=== PATIENT | female | born 1965 | race Caucasian/White ===

== ENCOUNTER 2020-03-28 22:45 | Inpatient (IN) ==
[2020-03-28] MEDS ORDERED: Ipratropium/Albuterol Neb 3 ML IH ONE (23:25)
[2020-03-29 00:05] LABS: Basophils # 0.1 K/mcL (0.0-0.2); Basophils % 0.8 %; Eosinophils # 0.2 K/mcL (0.0-0.6); Eosinophils % 2.3 %; Hematocrit 40.3 % (35.3-44.9); Hemoglobin 13.1 g/dL (11.5-15.4); Immature Granulocytes % 0.3 % (0-4); Lymphocytes % 37.4 %; Mean Corpuscular HGB Conc 32.5 g/dL (31.6-35.5); Mean Corpuscular Hemoglobin 30.3 pg (28.0-33.3); Mean Corpuscular Volume 93.1 fL (83.0-100.0); Mean Platelet Volume 10.3 fL (9.4-12.4); Monocytes # 0.4 K/mcL (0.0-1.3); Monocytes % 4.5 %; Neutrophils # 4.4 K/mcL (1.6-8.9); Platelet Count 241 K/mcL (140-400); Red Blood Count 4.33 M/mcL (3.82-4.97); Red Cell Distribution Width 13.6 % (11.5-14.5); Segmented Neutrophils % 54.7 %
[2020-03-29 00:09] LABS: Bilirubin,Urine Negative (Negative); Blood,Urine Small (Negative); Clarity,Urine Clear (Clear); Color,Urine Yellow (Yellow); Glucose,Urine (UA) 500 mg/dL (Normal); Ketones,Urine Negative (Negative); Leukocyte Esterase,Urine Trace (Negative); Nitrite,Urine Positive (Negative); Protein,Urine 100 mg/dL (Neg-Trace); Specific Gravity,Urine 1.025 (1.010-1.025); Urobilinogen,Urine Normal (Normal)
[2020-03-29] MEDS ORDERED: levoFLOXacin 750 MG/150 ML 750 MG/150 ML BAG IVPB ONE (00:09)
[2020-03-29] MEDS ORDERED: Vancomycin 1,000 MG in D5% in Water 250 ML IVPB ONE (00:10)
[2020-03-29 00:11] LABS: Bacteria,Urine Many per hpf (None-Few); RBC,Urine 0-3 per hpf (0-3); Squamous Epithelial Cell,Urine Few per hpf (None-Few)
[2020-03-29 00:21] LABS: VBG HCO3 29 mEq/L (21-27); VBG PCO2 50 mmHg (41-51); VBG PH 7.37 pH Units (7.32-7.42); VBG PO2 19 mmHg (25-50)
[2020-03-29 00:26] LABS: Albumin 4.1 g/dL (3.5-5.7); Bilirubin,Direct 0.1 mg/dL (0.0-0.2); Bilirubin,Indirect 0.4 mg/dL (0.0-1.0); Bilirubin,Total 0.5 mg/dL (0.3-1.0); Calcium 9.7 mg/dL (8.6-10.3); Globulin 4.3 g/dL (2.4-3.5); Total Protein 8.4 g/dL (6.4-8.9)
[2020-03-29] MEDS ORDERED: Dextrose Gel 15 GM/37.5 ML TUBE PO PRN ×2 (03:01)
[2020-03-29] MEDS ORDERED: Ondansetron ODT 4 MG TAB.RAPDIS SL PRN (03:01)
[2020-03-29] MEDS ORDERED: Naloxone 0.4 MG/ML INJ IVP PRN (03:01)
[2020-03-29] MEDS ORDERED: *HR* Dextrose 50 % in Water (Vial) 50 ML VIAL IVP PRN (03:01)
[2020-03-29] MEDS ORDERED: Ondansetron ODT 4 MG TAB.RAPDIS PO PRN (03:01)
[2020-03-29] MEDS ORDERED: *HR* Labetalol 20 MG/4 ML SYRINGE IVP PRN (03:01)
[2020-03-29] MEDS ORDERED: D5% in Water 1,000 ML IVC PRN (03:01)
[2020-03-29] MEDS ORDERED: Ipratropium/Albuterol Neb 3 ML IH PRN (04:00)
[2020-03-29 04:06] LABS: Basophils # 0.1 K/mcL (0.0-0.2); Basophils % 0.8 %; Eosinophils # 0.2 K/mcL (0.0-0.6); Eosinophils % 2.1 %; Hematocrit 37.6 % (35.3-44.9); Hemoglobin 12.4 g/dL (11.5-15.4); Immature Granulocytes % 0.5 % (0-4); Lymphocytes # 2.7 K/mcL (0.6-4.6); Lymphocytes % 34.2 %; Mean Corpuscular Hemoglobin 30.7 pg (28.0-33.3); Mean Corpuscular Volume 93.1 fL (83.0-100.0); Mean Platelet Volume 9.9 fL (9.4-12.4); Monocytes # 0.4 K/mcL (0.0-1.3); Monocytes % 4.9 %; Neutrophils # 4.6 K/mcL (1.6-8.9); Platelet Count 236 K/mcL (140-400); Red Blood Count 4.04 M/mcL (3.82-4.97); Red Cell Distribution Width 13.5 % (11.5-14.5); Segmented Neutrophils % 57.5 %
[2020-03-29 05:06] LABS: Albumin 3.9 g/dL (3.5-5.7); Albumin/Globulin Ratio 0.9 (1.1-2.2); Bilirubin,Total 0.5 mg/dL (0.3-1.0); Calcium 9.6 mg/dL (8.6-10.3); Globulin 4.2 g/dL (2.4-3.5); Total Protein 8.1 g/dL (6.4-8.9)
[2020-03-29] MEDS ORDERED: Insulin LISPRO 300 UNITS/3 ML VIAL SQ SCH (06:00)
[2020-03-29] MEDS: 0.9 % Sodium Chloride 500 ML IVC SCH ×2 (06:33→12:39)
[2020-03-29] MEDS ORDERED: *HR* Enoxaparin 40 MG/0.4 ML SYRINGE SQ SCH (07:00)
[2020-03-29] MEDS ORDERED: *HR* Metformin 500 MG TABLET PO SCH (08:00)
[2020-03-29] MEDS: Ipratropium/Albuterol Neb 3 ML IH SCH ×3 (08:30→21:24)
[2020-03-29] MEDS ORDERED: VENLAFAXINE HCL 100 MG PO SCH (09:00)
[2020-03-29] MEDS ORDERED: lisinopriL 10 MG TABLET PO SCH (09:00)
[2020-03-29] MEDS: Insulin LISPRO 300 UNITS/3 ML VIAL SQ SCH ×4 (09:02→21:59)
[2020-03-29] MEDS: Aspirin Enteric Coated 81 MG Tablet PO SCH (09:05)
[2020-03-29] MEDS: Topiramate 25 MG TABLET PO SCH ×2 (09:06→21:58)
[2020-03-29] MEDS: levETIRAcetam 250 MG TABLET PO SCH ×2 (09:06→21:57)
[2020-03-29] MEDS ORDERED: Gabapentin 300 MG CAPSULE PO PRN (10:15)
[2020-03-29 12:16] LABS: Estimated Average Glucose 361 mg/dl
[2020-03-29] MEDS: amLODIPine 5 MG TABLET PO SCH (12:29)
[2020-03-29] MEDS ORDERED: Levothyroxine 25 MCG TABLET PO SCH (14:00)
[2020-03-29] MEDS: *HR* Heparin 5,000 UNIT/ML VIAL SQ SCH ×2 (14:22→21:57)
[2020-03-29 14:44] LABS: Calcium 9.3 mg/dL (8.6-10.3); Potassium 3.9 mEq/L (3.5-5.1)
[2020-03-29 15:41] LABS: Thyroid Stimulating Hormone 155.939 mcIU/mL (0.340-5.600)
[2020-03-29] MEDS: 0.9 % Sodium Chloride 1,000 ML IVC SCH ×2 (16:46→23:54)
[2020-03-29] MEDS ORDERED: Insulin DETEMIR 100 UNIT/ML per UNIT SQ ONE (21:00)
[2020-03-29] MEDS ORDERED: QUEtiapine Fumarate 25 MG TABLET PO SCH (21:00)
[2020-03-29] MEDS ORDERED: Insulin DETEMIR 100 UNIT/ML X5UNITS SQ SCH (21:00)
[2020-03-29] MEDS ORDERED: Insulin NPH 100 UNIT/ML (x5UNIT) SQ SCH (21:00)
[2020-03-29] MEDS: Melatonin 3 MG TABLET PO SCH (21:58)
[2020-03-29] MEDS: Nystatin POWDER 30 GM BOTTLE TP SCH (21:58)
[2020-03-29] MEDS ORDERED: hydrOXYzine pamoate 25 MG CAPSULE PO PRN (22:00)
[2020-03-30] MEDS: Ipratropium/Albuterol Neb 3 ML IH SCH ×4 (03:49→21:40)
[2020-03-30] MEDS: *HR* Heparin 5,000 UNIT/ML VIAL SQ SCH ×3 (04:52→21:37)
[2020-03-30] MEDS: Gabapentin 100 MG CAPSULE PO PRN (04:52)
[2020-03-30 05:20] LABS: Basophils # 0.1 K/mcL (0.0-0.2); Basophils % 0.9 %; Eosinophils # 0.2 K/mcL (0.0-0.6); Eosinophils % 2.1 %; Hematocrit 36.2 % (35.3-44.9); Hemoglobin 11.6 g/dL (11.5-15.4); Immature Granulocytes % 0.3 % (0-4); Lymphocytes # 3.2 K/mcL (0.6-4.6); Mean Corpuscular Hemoglobin 30.6 pg (28.0-33.3); Mean Corpuscular Volume 95.5 fL (83.0-100.0); Mean Platelet Volume 10.1 fL (9.4-12.4); Monocytes # 0.4 K/mcL (0.0-1.3); Monocytes % 5.3 %; Neutrophils # 3.8 K/mcL (1.6-8.9); Platelet Count 195 K/mcL (140-400); Red Blood Count 3.79 M/mcL (3.82-4.97); Red Cell Distribution Width 13.9 % (11.5-14.5); Segmented Neutrophils % 49.4 %; White Blood Count 7.7 K/mcL (4.3-11.1)
[2020-03-30 05:34] LABS: Albumin 3.4 g/dL (3.5-5.7); Albumin/Globulin Ratio 0.9 (1.1-2.2); Bilirubin,Total 0.4 mg/dL (0.3-1.0); Calcium 9.1 mg/dL (8.6-10.3); Globulin 3.6 g/dL (2.4-3.5); Potassium 4.2 mEq/L (3.5-5.1)
[2020-03-30] MEDS: levETIRAcetam 250 MG TABLET PO SCH ×2 (09:23→21:37)
[2020-03-30] MEDS: PARoxetine 20 MG TABLET PO SCH (09:23)
[2020-03-30] MEDS: Topiramate 25 MG TABLET PO SCH ×2 (09:23→21:37)
[2020-03-30] MEDS: Aspirin Enteric Coated 81 MG Tablet PO SCH (09:23)
[2020-03-30] MEDS: amLODIPine 5 MG TABLET PO SCH (09:23)
[2020-03-30] MEDS: Nystatin POWDER 30 GM BOTTLE TP SCH ×2 (09:26→21:39)
[2020-03-30] MEDS: Insulin LISPRO 300 UNITS/3 ML VIAL SQ SCH ×4 (09:26→21:40)
[2020-03-30] MEDS: 0.9 % Sodium Chloride 1,000 ML IVC SCH (09:31)
[2020-03-30] MEDS: levoFLOXacin 750 MG/150 ML 750 MG/150 ML BAG IVPB SCH (14:23)
[2020-03-30] MEDS ORDERED: levoFLOXacin 500 MG/100 ML 500 MG/100 ML BAG IVPB SCH (18:00)
[2020-03-30] MEDS ORDERED: Insulin DETEMIR 100 UNIT/ML X5UNITS SQ SCH (21:00)
[2020-03-30] MEDS: Melatonin 3 MG TABLET PO SCH (21:37)
[2020-03-30] MEDS: Insulin DETEMIR 100 UNIT/ML X5UNITS SQ SCH (21:38)
[2020-03-31] MEDS: Ipratropium/Albuterol Neb 3 ML IH SCH ×4 (04:04→21:52)
[2020-03-31 05:34] LABS: Calcium 8.9 mg/dL (8.6-10.3)
[2020-03-31] MEDS: *HR* Heparin 5,000 UNIT/ML VIAL SQ SCH ×3 (05:43→21:17)
[2020-03-31] MEDS: Insulin LISPRO 300 UNITS/3 ML VIAL SQ SCH ×4 (07:51→21:08)
[2020-03-31] MEDS: Aspirin Enteric Coated 81 MG Tablet PO SCH (09:05)
[2020-03-31] MEDS: Nystatin POWDER 30 GM BOTTLE TP SCH ×2 (09:05→21:22)
[2020-03-31] MEDS: PARoxetine 20 MG TABLET PO SCH (09:05)
[2020-03-31] MEDS: levETIRAcetam 250 MG TABLET PO SCH ×2 (09:05→21:17)
[2020-03-31] MEDS: Topiramate 25 MG TABLET PO SCH ×2 (09:06→21:16)
[2020-03-31] MEDS: amLODIPine 5 MG TABLET PO SCH (09:35)
[2020-03-31] MEDS: levoFLOXacin 750 MG/150 ML 750 MG/150 ML BAG IVPB SCH (13:16)
[2020-03-31] MEDS: levoFLOXacin 750 MG TABLET PO SCH (16:25)
[2020-03-31] MEDS: Gabapentin 100 MG CAPSULE PO PRN (19:51)
[2020-03-31] MEDS: Insulin DETEMIR 100 UNIT/ML X5UNITS SQ SCH (21:17)
[2020-03-31] MEDS: Melatonin 3 MG TABLET PO SCH (21:17)
[2020-04-01] MEDS: Ipratropium/Albuterol Neb 3 ML IH SCH ×4 (03:57→22:34)
[2020-04-01 05:38] LABS: Calcium 9.1 mg/dL (8.6-10.3)
[2020-04-01] MEDS: *HR* Heparin 5,000 UNIT/ML VIAL SQ SCH ×3 (06:17→21:44)
[2020-04-01] MEDS: Insulin LISPRO 300 UNITS/3 ML VIAL SQ SCH ×4 (07:31→21:49)
[2020-04-01] MEDS: Topiramate 25 MG TABLET PO SCH ×2 (08:31→21:40)
[2020-04-01] MEDS: Aspirin Enteric Coated 81 MG Tablet PO SCH (08:31)
[2020-04-01] MEDS: PARoxetine 20 MG TABLET PO SCH (08:31)
[2020-04-01] MEDS: levETIRAcetam 250 MG TABLET PO SCH ×2 (08:31→21:41)
[2020-04-01] MEDS: Nystatin POWDER 30 GM BOTTLE TP SCH ×2 (08:31→21:48)
[2020-04-01] MEDS: amLODIPine 5 MG TABLET PO SCH (08:32)
[2020-04-01] MEDS: levoFLOXacin 750 MG TABLET PO SCH (16:59)
[2020-04-01 19:14] LABS: Sodium, Urine 58.9 mEq/L
[2020-04-01] MEDS: Gabapentin 100 MG CAPSULE PO PRN (21:40)
[2020-04-01] MEDS: Melatonin 3 MG TABLET PO SCH (21:42)
[2020-04-01] MEDS: Insulin DETEMIR 100 UNIT/ML X5UNITS SQ SCH (21:51)
[2020-04-02] MEDS: Ipratropium/Albuterol Neb 3 ML IH SCH ×4 (04:01→21:41)
[2020-04-02] MEDS: *HR* Heparin 5,000 UNIT/ML VIAL SQ SCH ×3 (06:20→21:58)
[2020-04-02 06:28] LABS: Calcium 9.1 mg/dL (8.6-10.3); Potassium 4.4 mEq/L (3.5-5.1)
[2020-04-02] MEDS: Insulin LISPRO 300 UNITS/3 ML VIAL SQ SCH ×4 (08:39→21:52)
[2020-04-02] MEDS: PARoxetine 20 MG TABLET PO SCH (08:42)
[2020-04-02] MEDS: Topiramate 25 MG TABLET PO SCH ×2 (08:42→21:47)
[2020-04-02] MEDS: levETIRAcetam 250 MG TABLET PO SCH ×2 (08:42→21:49)
[2020-04-02] MEDS: Aspirin Enteric Coated 81 MG Tablet PO SCH (08:43)
[2020-04-02] MEDS: amLODIPine 5 MG TABLET PO SCH (08:43)
[2020-04-02] MEDS: Nystatin POWDER 30 GM BOTTLE TP SCH ×2 (08:46→21:53)
[2020-04-02] MEDS ORDERED: 0.9 % Sodium Chloride 1,000 ML IVC SCH (13:00)
[2020-04-02] MEDS ORDERED: *HR* OxyCODONE Immed Rel 5 MG TABLET PO PRN (15:20)
[2020-04-02] MEDS: SUMAtriptan succinate 25 MG TABLET PO PRN ×2 (17:14→21:49)
[2020-04-02] MEDS: levoFLOXacin 750 MG TABLET PO SCH (17:14)
[2020-04-02 17:30] LABS: Bilirubin,Urine Negative (Negative); Blood,Urine Trace-lysed (Negative); Clarity,Urine Clear (Clear); Color,Urine Yellow (Yellow); Glucose,Urine (UA) Normal (Normal); Ketones,Urine Negative (Negative); Leukocyte Esterase,Urine Negative (Negative); Nitrite,Urine Negative (Negative); Protein,Urine 30 mg/dL (Neg-Trace); Urobilinogen,Urine Normal (Normal)
[2020-04-02 17:44] LABS: RBC,Urine 0-3 per hpf (0-3); Squamous Epithelial Cell,Urine Moderate per hpf (None-Few)
[2020-04-02] MEDS: Gabapentin 100 MG CAPSULE PO PRN (21:47)
[2020-04-02] MEDS: Melatonin 3 MG TABLET PO SCH (21:49)
[2020-04-02] MEDS: Insulin DETEMIR 100 UNIT/ML X5UNITS SQ SCH (21:53)
[2020-04-03] MEDS: Ipratropium/Albuterol Neb 3 ML IH SCH ×4 (01:59→21:48)
[2020-04-03] MEDS: SUMAtriptan succinate 25 MG TABLET PO PRN ×2 (05:18→20:51)
[2020-04-03] MEDS: *HR* Heparin 5,000 UNIT/ML VIAL SQ SCH ×3 (05:18→21:04)
[2020-04-03 07:37] LABS: Calcium 9.2 mg/dL (8.6-10.3); Potassium 4.1 mEq/L (3.5-5.1)
[2020-04-03 07:38] LABS: Albumin 3.9 g/dL (3.5-5.7); Magnesium 1.9 mg/dL (1.6-2.6); Phosphorous 5.1 mg/dL (2.7-4.5); Uric Acid 8.8 mg/dL (2.3-7.6)
[2020-04-03] MEDS: Insulin LISPRO 300 UNITS/3 ML VIAL SQ SCH ×4 (08:41→20:58)
[2020-04-03] MEDS: PARoxetine 20 MG TABLET PO SCH (08:54)
[2020-04-03] MEDS: Topiramate 25 MG TABLET PO SCH ×2 (08:54→20:53)
[2020-04-03] MEDS: Aspirin Enteric Coated 81 MG Tablet PO SCH (08:54)
[2020-04-03] MEDS: levETIRAcetam 250 MG TABLET PO SCH ×2 (08:54→20:52)
[2020-04-03] MEDS: amLODIPine 5 MG TABLET PO SCH (08:55)
[2020-04-03] MEDS: Nystatin POWDER 30 GM BOTTLE TP SCH ×2 (09:02→21:06)
[2020-04-03] MEDS: Acetylcysteine 10% 2 ML INHSOL IH SCH ×2 (10:26→21:48)
[2020-04-03] MEDS: levoFLOXacin 750 MG TABLET PO SCH (15:28)
[2020-04-03] MEDS: Melatonin 3 MG TABLET PO SCH (20:51)
[2020-04-03] MEDS: Insulin DETEMIR 100 UNIT/ML X5UNITS SQ SCH (21:08)
[2020-04-04] MEDS: Ipratropium/Albuterol Neb 3 ML IH SCH ×4 (04:08→21:13)
[2020-04-04] MEDS: *HR* Heparin 5,000 UNIT/ML VIAL SQ SCH ×3 (06:26→21:11)
[2020-04-04] MEDS: Insulin LISPRO 300 UNITS/3 ML VIAL SQ SCH ×4 (09:48→20:52)
[2020-04-04] MEDS: PARoxetine 20 MG TABLET PO SCH (09:52)
[2020-04-04] MEDS: Aspirin Enteric Coated 81 MG Tablet PO SCH (09:52)
[2020-04-04] MEDS: Topiramate 25 MG TABLET PO SCH ×2 (09:52→21:12)
[2020-04-04] MEDS: levETIRAcetam 250 MG TABLET PO SCH ×2 (09:54→21:12)
[2020-04-04] MEDS: amLODIPine 5 MG TABLET PO SCH (09:54)
[2020-04-04] MEDS: Nystatin POWDER 30 GM BOTTLE TP SCH ×2 (09:58→21:12)
[2020-04-04] MEDS: Acetylcysteine 10% 2 ML INHSOL IH SCH ×2 (10:36→21:12)
[2020-04-04 13:09] LABS: Calcium 8.6 mg/dL (8.6-10.3); Potassium 3.9 mEq/L (3.5-5.1)
[2020-04-04] MEDS: 0.9 % Sodium Chloride 1,000 ML IVC SCH (17:09)
[2020-04-04] MEDS: Insulin DETEMIR 100 UNIT/ML X5UNITS SQ SCH (20:53)
[2020-04-04] MEDS: Melatonin 3 MG TABLET PO SCH (21:12)
[2020-04-05] MEDS: Ipratropium/Albuterol Neb 3 ML IH SCH ×4 (02:27→21:40)
[2020-04-05] MEDS: *HR* Heparin 5,000 UNIT/ML VIAL SQ SCH ×3 (05:32→20:57)
[2020-04-05] MEDS: 0.9 % Sodium Chloride 1,000 ML IVC SCH ×2 (05:42→20:49)
[2020-04-05 06:03] LABS: Basophils # 0.1 K/mcL (0.0-0.2); Basophils % 0.7 %; Eosinophils # 0.2 K/mcL (0.0-0.6); Eosinophils % 2.4 %; Hematocrit 35.7 % (35.3-44.9); Hemoglobin 11.3 g/dL (11.5-15.4); Immature Granulocytes % 0.7 % (0-4); Lymphocytes # 2.5 K/mcL (0.6-4.6); Lymphocytes % 33.6 %; Mean Corpuscular HGB Conc 31.7 g/dL (31.6-35.5); Mean Corpuscular Hemoglobin 30.6 pg (28.0-33.3); Mean Corpuscular Volume 96.7 fL (83.0-100.0); Mean Platelet Volume 10.1 fL (9.4-12.4); Monocytes # 0.4 K/mcL (0.0-1.3); Neutrophils # 4.3 K/mcL (1.6-8.9); Platelet Count 217 K/mcL (140-400); Red Blood Count 3.69 M/mcL (3.82-4.97); Red Cell Distribution Width 13.7 % (11.5-14.5); Segmented Neutrophils % 57.6 %; White Blood Count 7.4 K/mcL (4.3-11.1)
[2020-04-05 06:43] LABS: Calcium 8.5 mg/dL (8.6-10.3); Potassium 4.1 mEq/L (3.5-5.1)
[2020-04-05] MEDS: Insulin LISPRO 300 UNITS/3 ML VIAL SQ SCH ×4 (08:42→20:53)
[2020-04-05] MEDS: Aspirin Enteric Coated 81 MG Tablet PO SCH (08:46)
[2020-04-05] MEDS: levETIRAcetam 250 MG TABLET PO SCH ×2 (08:47→20:41)
[2020-04-05] MEDS: PARoxetine 20 MG TABLET PO SCH (08:47)
[2020-04-05] MEDS: Topiramate 25 MG TABLET PO SCH ×2 (08:47→20:40)
[2020-04-05] MEDS: amLODIPine 5 MG TABLET PO SCH (08:47)
[2020-04-05] MEDS: Nystatin POWDER 30 GM BOTTLE TP SCH ×2 (09:03→20:44)
[2020-04-05] MEDS: Acetylcysteine 10% 2 ML INHSOL IH SCH ×2 (10:53→21:40)
[2020-04-05 12:21] LABS: Lambda Qnt Free Light Chains 43.68 mg/L (5.71-26.30)
[2020-04-05 14:14] LABS: Kappa Qnt Free Light Chains 77.43 mg/L (3.30-19.40)
[2020-04-05] MEDS: Melatonin 3 MG TABLET PO SCH (20:39)
[2020-04-05] MEDS: Insulin DETEMIR 100 UNIT/ML X5UNITS SQ SCH (20:53)
[2020-04-06] MEDS: Ipratropium/Albuterol Neb 3 ML IH SCH ×4 (04:01→22:12)
[2020-04-06] MEDS: *HR* Heparin 5,000 UNIT/ML VIAL SQ SCH ×3 (05:50→20:39)
[2020-04-06 05:54] LABS: Calcium 8.5 mg/dL (8.6-10.3); Potassium 3.8 mEq/L (3.5-5.1)
[2020-04-06] MEDS: Insulin LISPRO 300 UNITS/3 ML VIAL SQ SCH ×4 (08:31→20:47)
[2020-04-06] MEDS: amLODIPine 5 MG TABLET PO SCH (09:12)
[2020-04-06] MEDS: levETIRAcetam 250 MG TABLET PO SCH ×2 (09:12→20:38)
[2020-04-06] MEDS: Topiramate 25 MG TABLET PO SCH ×2 (09:12→20:38)
[2020-04-06] MEDS: PARoxetine 20 MG TABLET PO SCH (09:13)
[2020-04-06] MEDS: Aspirin Enteric Coated 81 MG Tablet PO SCH (09:13)
[2020-04-06] MEDS: Nystatin POWDER 30 GM BOTTLE TP SCH ×2 (09:14→22:14)
[2020-04-06] MEDS: 0.9 % Sodium Chloride 1,000 ML IVC SCH ×2 (09:14→22:15)
[2020-04-06 09:21] LABS: Beta Globulin (PEP) 1.06 g/dL (0.48-1.10)
[2020-04-06] MEDS: Acetylcysteine 10% 2 ML INHSOL IH SCH ×2 (11:24→22:06)
[2020-04-06 14:32] LABS: IFE Reflexed NOT DONE
[2020-04-06] MEDS: Melatonin 3 MG TABLET PO SCH (20:38)
[2020-04-06] MEDS: Insulin DETEMIR 100 UNIT/ML X5UNITS SQ SCH (20:39)
[2020-04-07] MEDS: Ipratropium/Albuterol Neb 3 ML IH SCH ×4 (03:51→22:49)
[2020-04-07] MEDS: *HR* Heparin 5,000 UNIT/ML VIAL SQ SCH ×3 (05:25→22:22)
[2020-04-07] MEDS: Insulin LISPRO 300 UNITS/3 ML VIAL SQ SCH ×4 (07:44→22:24)
[2020-04-07] MEDS: Nystatin POWDER 30 GM BOTTLE TP SCH ×2 (08:30→22:24)
[2020-04-07] MEDS: Topiramate 25 MG TABLET PO SCH ×2 (08:30→22:23)
[2020-04-07] MEDS: PARoxetine 20 MG TABLET PO SCH (08:30)
[2020-04-07] MEDS: Aspirin Enteric Coated 81 MG Tablet PO SCH (08:30)
[2020-04-07] MEDS: amLODIPine 5 MG TABLET PO SCH (08:30)
[2020-04-07] MEDS: levETIRAcetam 250 MG TABLET PO SCH ×2 (08:30→22:23)
[2020-04-07] MEDS: Acetylcysteine 10% 2 ML INHSOL IH SCH ×2 (10:26→22:50)
[2020-04-07 12:09] LABS: Calcium 9.1 mg/dL (8.6-10.3); Potassium 4.4 mEq/L (3.5-5.1)
[2020-04-07] MEDS: 0.9 % Sodium Chloride 1,000 ML IVC SCH (14:31)
[2020-04-07] MEDS: Insulin DETEMIR 100 UNIT/ML X5UNITS SQ SCH (22:22)
[2020-04-07] MEDS: Melatonin 3 MG TABLET PO SCH (22:23)
[2020-04-08] MEDS: Ipratropium/Albuterol Neb 3 ML IH SCH ×4 (04:13→21:46)
[2020-04-08] MEDS: *HR* Heparin 5,000 UNIT/ML VIAL SQ SCH ×3 (04:58→21:54)
[2020-04-08 05:58] LABS: Calcium 9.2 mg/dL (8.6-10.3); Potassium 4.1 mEq/L (3.5-5.1)
[2020-04-08] MEDS: Insulin LISPRO 300 UNITS/3 ML VIAL SQ SCH ×4 (08:56→21:53)
[2020-04-08] MEDS ORDERED: amLODIPine 5 MG TABLET PO SCH (09:00)
[2020-04-08] MEDS: levETIRAcetam 250 MG TABLET PO SCH ×2 (10:35→21:48)
[2020-04-08] MEDS: PARoxetine 20 MG TABLET PO SCH (10:35)
[2020-04-08] MEDS: Aspirin Enteric Coated 81 MG Tablet PO SCH (10:35)
[2020-04-08] MEDS: Topiramate 25 MG TABLET PO SCH ×2 (10:35→21:50)
[2020-04-08] MEDS: Nystatin POWDER 30 GM BOTTLE TP SCH ×2 (10:37→21:57)
[2020-04-08] MEDS ORDERED: MOM Conc 10 ML UD.LIQ PO ONE (10:58)
[2020-04-08] MEDS: amLODIPine 5 MG TABLET PO SCH (11:18)
[2020-04-08] MEDS: Acetylcysteine 10% 2 ML INHSOL IH SCH ×2 (12:14→21:46)
[2020-04-08] MEDS: Melatonin 3 MG TABLET PO SCH (21:49)
[2020-04-08] MEDS: Insulin DETEMIR 100 UNIT/ML X5UNITS SQ SCH (21:53)
[2020-04-09] MEDS: Ipratropium/Albuterol Neb 3 ML IH SCH ×2 (03:55→11:17)
[2020-04-09] MEDS: *HR* Heparin 5,000 UNIT/ML VIAL SQ SCH ×2 (06:34→13:57)
[2020-04-09 07:58] LABS: Calcium 8.8 mg/dL (8.6-10.3); Potassium 4.3 mEq/L (3.5-5.1)
[2020-04-09] MEDS: Insulin LISPRO 300 UNITS/3 ML VIAL SQ SCH ×2 (08:21→12:00)
[2020-04-09] MEDS: levETIRAcetam 250 MG TABLET PO SCH (09:02)
[2020-04-09] MEDS: amLODIPine 5 MG TABLET PO SCH (09:03)
[2020-04-09] MEDS: Topiramate 25 MG TABLET PO SCH (09:03)
[2020-04-09] MEDS: Aspirin Enteric Coated 81 MG Tablet PO SCH (09:03)
[2020-04-09] MEDS: PARoxetine 20 MG TABLET PO SCH (09:03)
[2020-04-09] MEDS: Nystatin POWDER 30 GM BOTTLE TP SCH (09:15)
[2020-04-09] MEDS: Acetylcysteine 10% 2 ML INHSOL IH SCH (11:16)
[2020-04-09 15:14] VITALS: BP 149/82
== END 2020-04-09 16:37 | disposition home health service (06) | DRG 469 ==
LOC: EMEROOGRE 22:45 → INPGRE 03-29 02:35
PROVIDERS: ADMIT Family Medicine; ATTEND Family Medicine

== ENCOUNTER 2021-06-17 13:02 | Inpatient (IN) ==
[2021-06-17] MEDS ORDERED: 0.9 % Sodium Chloride 1,000 ML IVC ONE (13:24)
[2021-06-17 13:42] LABS: Basophils # 0.1 K/mcL (0.0-0.2); Basophils % 0.7 %; Eosinophils # 0.1 K/mcL (0.0-0.6); Eosinophils % 1.4 %; Hematocrit 35.4 % (35.3-44.9); Hemoglobin 11.3 g/dL (11.5-15.4); Immature Granulocytes % 2.2 % (0-4); Lymphocytes # 2.3 K/mcL (0.6-4.6); Lymphocytes % 26.5 %; Mean Corpuscular HGB Conc 31.9 g/dL (31.6-35.5); Mean Corpuscular Hemoglobin 30.1 pg (28.0-33.3); Mean Corpuscular Volume 94.4 fL (83.0-100.0); Mean Platelet Volume 9.6 fL (9.4-12.4); Monocytes # 0.5 K/mcL (0.0-1.3); Monocytes % 6.1 %; Neutrophils # 5.4 K/mcL (1.6-8.9); Platelet Count 391 K/mcL (140-400); Red Blood Count 3.75 M/mcL (3.82-4.97); Red Cell Distribution Width 14.2 % (11.5-14.5); Segmented Neutrophils % 63.1 %; White Blood Count 8.6 K/mcL (4.3-11.1)
[2021-06-17 13:50] LABS: INR 1.2; Prothrombin Time 13.2 Seconds (9.4-12.1)
[2021-06-17 13:53] LABS: Activated Partial Thrombo Time 31.7 Seconds (26.0-36.0)
[2021-06-17 13:59] LABS: Troponin I < 0.03 ng/mL (< 0.04)
[2021-06-17 14:06] LABS: Alanine Aminotransferase 10 Units/L (7-52); Albumin 3.6 g/dL (3.5-5.7); Albumin/Globulin Ratio 0.8 (1.1-2.2); Alkaline Phosphatase 96 Units/L (34-104); Aspartate Amino Transferase 18 Units/L (13-39); BUN/Creatinine Ratio 15 (6-26); Bilirubin,Total 0.4 mg/dL (0.3-1.0); Blood Urea Nitrogen 20 mg/dL (6-20); Calcium 9.3 mg/dL (8.6-10.3); Carbon Dioxide 29 mEq/L (23-29); Chloride 98 mEq/L (98-107); Globulin 4.4 g/dL (2.4-3.5); Glucose 186 mg/dL (70-105); Osmolality,Calculated 291 (280-300); Potassium 4.4 mEq/L (3.5-5.1); Sodium 137 mEq/L (136-145); eGFR For African Americans 51 (> 60); eGFR For Non-African Americans 42 (> 60)
[2021-06-17 14:41] LABS: Thyroid Stimulating Hormone 74.601 mcIU/mL (0.340-5.600)
[2021-06-17] MEDS ORDERED: Gadolinium Contrast Agent (WT Based) IV PRN ×2 (21:30→23:53)
[2021-06-17] MEDS ORDERED: NON-FORMULARY MEDICATION 1 EACH EACH (Albuterol Sulfate 18 GM Hfa.Aer.Ad) IH SCH (23:53)
[2021-06-17] MEDS ORDERED: Naloxone 0.4 MG/ML INJ IVP PRN (23:53)
[2021-06-17] MEDS ORDERED: Ondansetron ODT 4 MG TAB.RAPDIS PO PRN (23:53)
[2021-06-18] MEDS ORDERED: Insulin DETEMIR 100 UNIT/ML per UNIT SUBQ ONE (00:15)
[2021-06-18] MEDS: Ipratropium/Albuterol Neb 3 ML IH SCH ×5 (00:15→21:42)
[2021-06-18] MEDS: levETIRAcetam 250 MG TABLET PO SCH ×3 (01:29→21:31)
[2021-06-18] MEDS: Melatonin 3 MG TABLET PO SCH ×2 (01:30→21:31)
[2021-06-18] MEDS: 0.9 % Sodium Chloride 1,000 ML IVC SCH ×2 (01:31→10:32)
[2021-06-18] MEDS: *HR* Enoxaparin 30 MG/0.3 ML SYRINGE SQ SCH (05:34)
[2021-06-18 06:26] LABS: Basophils % 0.5 %; Eosinophils # 0.1 K/mcL (0.0-0.6); Eosinophils % 1.1 %; Hematocrit 29.4 % (35.3-44.9); Hemoglobin 9.3 g/dL (11.5-15.4); Immature Granulocytes % 1.5 % (0-4); Lymphocytes # 2.7 K/mcL (0.6-4.6); Lymphocytes % 30.7 %; Mean Corpuscular HGB Conc 31.6 g/dL (31.6-35.5); Mean Corpuscular Hemoglobin 30.1 pg (28.0-33.3); Mean Corpuscular Volume 95.1 fL (83.0-100.0); Mean Platelet Volume 9.6 fL (9.4-12.4); Monocytes # 0.7 K/mcL (0.0-1.3); Monocytes % 8.1 %; Neutrophils # 5.1 K/mcL (1.6-8.9); Platelet Count 307 K/mcL (140-400); Red Blood Count 3.09 M/mcL (3.82-4.97); Red Cell Distribution Width 14.3 % (11.5-14.5); Segmented Neutrophils % 58.1 %; White Blood Count 8.8 K/mcL (4.3-11.1)
[2021-06-18 06:33] LABS: Calcium 8.5 mg/dL (8.6-10.3); Potassium 3.6 mEq/L (3.5-5.1)
[2021-06-18 09:42] LABS: Albumin/Globulin Ratio 0.8 (1.1-2.2); Bilirubin,Direct 0.1 mg/dL (0.0-0.2); Bilirubin,Indirect 0.2 mg/dL (0.0-1.0); Bilirubin,Total 0.3 mg/dL (0.3-1.0); Globulin 3.6 g/dL (2.4-3.5); Total Protein 6.6 g/dL (6.4-8.9)
[2021-06-18] MEDS: Aspirin Enteric Coated 81 MG Tablet PO SCH (10:31)
[2021-06-18] MEDS: *HR* Metformin 500 MG TABLET PO SCH ×2 (10:31→17:46)
[2021-06-18] MEDS: Insulin LISPRO 300 UNITS/3 ML VIAL SUBQ SCH ×3 (10:32→17:25)
[2021-06-18] MEDS ORDERED: Isovue-370 500 ML BOTTLE IVP ONE (12:34)
[2021-06-18 12:37] LABS: Bilirubin,Urine Negative (Negative); Blood,Urine Trace-lysed (Negative); Clarity,Urine Cloudy (Clear); Color,Urine Yellow (Yellow); Glucose,Urine (UA) Normal (Normal); Ketones,Urine Negative (Negative); Leukocyte Esterase,Urine Moderate (Negative); Nitrite,Urine Positive (Negative); PH,Urine 5.5 pH Units (5.0-8.0); Protein,Urine 100 mg/dL (Neg-Trace); Specific Gravity,Urine 1.025 (1.010-1.025); Urobilinogen,Urine Normal (Normal)
[2021-06-18 13:35] LABS: Bacteria,Urine Moderate per hpf (None-Few); Squamous Epithelial Cell,Urine Few per hpf (None-Few); WBC,Urine TNTC per hpf (0-3)
[2021-06-18] MEDS: cefTRIAXone 1,000 MG in 0.9 % Sodium Chloride Mini Bag 100 ML IVP SCH (17:46)
[2021-06-18] MEDS ORDERED: Insulin DETEMIR 100 UNIT/ML X5UNITS SUBQ SCH (21:00)
[2021-06-19] MEDS: Ipratropium/Albuterol Neb 3 ML IH SCH ×4 (04:05→21:20)
[2021-06-19] MEDS: *HR* Enoxaparin 30 MG/0.3 ML SYRINGE SQ SCH (04:24)
[2021-06-19 06:13] LABS: Basophils % 0.4 %; Eosinophils # 0.2 K/mcL (0.0-0.6); Eosinophils % 1.6 %; Hematocrit 29.5 % (35.3-44.9); Hemoglobin 9.2 g/dL (11.5-15.4); Immature Granulocytes % 1.9 % (0-4); Lymphocytes % 31.4 %; Mean Corpuscular HGB Conc 31.2 g/dL (31.6-35.5); Mean Corpuscular Hemoglobin 30.5 pg (28.0-33.3); Mean Corpuscular Volume 97.7 fL (83.0-100.0); Mean Platelet Volume 9.9 fL (9.4-12.4); Monocytes # 0.6 K/mcL (0.0-1.3); Monocytes % 5.9 %; Neutrophils # 5.5 K/mcL (1.6-8.9); Platelet Count 337 K/mcL (140-400); Red Blood Count 3.02 M/mcL (3.82-4.97); Red Cell Distribution Width 14.5 % (11.5-14.5); Segmented Neutrophils % 58.8 %; White Blood Count 9.4 K/mcL (4.3-11.1)
[2021-06-19 06:29] LABS: Calcium 8.2 mg/dL (8.6-10.3); Potassium 3.5 mEq/L (3.5-5.1)
[2021-06-19] MEDS: *HR* Metformin 500 MG TABLET PO SCH (10:08)
[2021-06-19] MEDS: Insulin LISPRO 300 UNITS/3 ML VIAL SUBQ SCH ×3 (10:08→16:43)
[2021-06-19] MEDS: cefTRIAXone 1,000 MG in 0.9 % Sodium Chloride Mini Bag 100 ML IVP SCH (10:29)
[2021-06-19] MEDS: levETIRAcetam 250 MG TABLET PO SCH ×2 (10:29→21:28)
[2021-06-19] MEDS: Aspirin Enteric Coated 81 MG Tablet PO SCH (10:29)
[2021-06-19] MEDS: Melatonin 3 MG TABLET PO SCH (21:28)
[2021-06-19] MEDS: Insulin DETEMIR 100 UNIT/ML X5UNITS SUBQ SCH (21:34)
[2021-06-20] MEDS: Ipratropium/Albuterol Neb 3 ML IH SCH ×4 (04:36→23:12)
[2021-06-20] MEDS: *HR* Enoxaparin 30 MG/0.3 ML SYRINGE SQ SCH (05:09)
[2021-06-20] MEDS: Insulin LISPRO 300 UNITS/3 ML VIAL SUBQ SCH ×3 (08:05→16:18)
[2021-06-20] MEDS: cefTRIAXone 1,000 MG in 0.9 % Sodium Chloride Mini Bag 100 ML IVP SCH (08:06)
[2021-06-20] MEDS: levETIRAcetam 250 MG TABLET PO SCH ×2 (08:06→20:20)
[2021-06-20] MEDS: Aspirin Enteric Coated 81 MG Tablet PO SCH (08:06)
[2021-06-20] MEDS: Melatonin 3 MG TABLET PO SCH (20:20)
[2021-06-20] MEDS: Insulin DETEMIR 100 UNIT/ML X5UNITS SUBQ SCH (20:20)
[2021-06-21] MEDS: Ipratropium/Albuterol Neb 3 ML IH SCH ×4 (03:47→20:32)
[2021-06-21] MEDS: *HR* Enoxaparin 30 MG/0.3 ML SYRINGE SQ SCH (04:15)
[2021-06-21 05:55] LABS: Basophils % 0.4 %; Eosinophils # 0.2 K/mcL (0.0-0.6); Eosinophils % 1.7 %; Hematocrit 33.9 % (35.3-44.9); Hemoglobin 10.3 g/dL (11.5-15.4); Immature Granulocytes % 1.1 % (0-4); Lymphocytes # 2.9 K/mcL (0.6-4.6); Lymphocytes % 32.3 %; Mean Corpuscular HGB Conc 30.4 g/dL (31.6-35.5); Mean Corpuscular Hemoglobin 30.2 pg (28.0-33.3); Mean Corpuscular Volume 99.4 fL (83.0-100.0); Mean Platelet Volume 9.9 fL (9.4-12.4); Monocytes # 0.7 K/mcL (0.0-1.3); Monocytes % 7.3 %; Neutrophils # 5.1 K/mcL (1.6-8.9); Platelet Count 296 K/mcL (140-400); Red Blood Count 3.41 M/mcL (3.82-4.97); Red Cell Distribution Width 14.2 % (11.5-14.5); Segmented Neutrophils % 57.2 %; White Blood Count 8.9 K/mcL (4.3-11.1)
[2021-06-21] MEDS: cefTRIAXone 1,000 MG in 0.9 % Sodium Chloride Mini Bag 100 ML IVP SCH (08:20)
[2021-06-21] MEDS: levETIRAcetam 250 MG TABLET PO SCH ×2 (08:20→20:57)
[2021-06-21] MEDS: Aspirin Enteric Coated 81 MG Tablet PO SCH (08:20)
[2021-06-21] MEDS: Insulin LISPRO 300 UNITS/3 ML VIAL SUBQ SCH ×3 (08:21→19:18)
[2021-06-21 13:20] LABS: Estimated Average Glucose 220 mg/dl; Hemoglobin A1C 9.3 %
[2021-06-21 19:57] LABS: Adenovirus Not Detected (Not Detect); Bordetella Pertussis Not Detected (Not Detect); Chlamydophila pneumoniae Not Detected (Not Detect); Coronavirus 229E Not Detected (Not Detect); Coronavirus HKU1 Not Detected (Not Detect); Coronavirus NL63 Not Detected (Not Detect); Coronavirus OC43 Not Detected (Not Detect); Human Metapneumovirus Not Detected (Not Detect); Human Rhinovirus/Enterovirus Not Detected (Not Detect); Influenza A Subtype 2009 H1 Not Detected (Not Detect); Influenza B Not Detected (Not Detect); Mycoplasma pneumoniae Not Detected (Not Detect); Parainfluenza Virus 1 Not Detected (Not Detect); Parainfluenza Virus 2 Not Detected (Not Detect); Parainfluenza Virus 3 Not Detected (Not Detect); Parainfluenza Virus 4 Not Detected (Not Detect); Respiratory Syncytial Virus Not Detected (Not Detect); SARS-CoV-2 Not Detected (Not Detect)
[2021-06-21] MEDS ORDERED: Vancomycin 1,750 MG in 0.9 % Sodium Chloride 250 ML IVPB ONE (20:09)
[2021-06-21] MEDS: Insulin DETEMIR 100 UNIT/ML X5UNITS SUBQ SCH (20:57)
[2021-06-21] MEDS: Melatonin 3 MG TABLET PO SCH (20:57)
[2021-06-21] MEDS ORDERED: Ondansetron ODT 4 MG TAB.RAPDIS SL PRN (21:14)
[2021-06-22] MEDS: Ipratropium/Albuterol Neb 3 ML IH SCH ×3 (03:59→16:06)
[2021-06-22 05:07] LABS: Basophils % 0.5 %; Eosinophils # 0.2 K/mcL (0.0-0.6); Eosinophils % 1.9 %; Hematocrit 30.9 % (35.3-44.9); Hemoglobin 9.6 g/dL (11.5-15.4); Immature Granulocytes % 1.1 % (0-4); Lymphocytes # 2.5 K/mcL (0.6-4.6); Lymphocytes % 28.4 %; Mean Corpuscular HGB Conc 31.1 g/dL (31.6-35.5); Mean Corpuscular Hemoglobin 29.8 pg (28.0-33.3); Mean Platelet Volume 9.9 fL (9.4-12.4); Monocytes # 0.6 K/mcL (0.0-1.3); Monocytes % 6.4 %; Neutrophils # 5.5 K/mcL (1.6-8.9); Platelet Count 342 K/mcL (140-400); Red Blood Count 3.22 M/mcL (3.82-4.97); Red Cell Distribution Width 14.2 % (11.5-14.5); Segmented Neutrophils % 61.7 %; White Blood Count 8.8 K/mcL (4.3-11.1)
[2021-06-22 05:20] LABS: BUN/Creatinine Ratio 11 (6-26); Blood Urea Nitrogen 12 mg/dL (6-20); Calcium 8.4 mg/dL (8.6-10.3); Carbon Dioxide 29 mEq/L (23-29); Chloride 101 mEq/L (98-107); Glucose 124 mg/dL (70-105); Osmolality,Calculated 283 (280-300); Sodium 136 mEq/L (136-145); eGFR For African Americans > 60 (> 60); eGFR For Non-African Americans 51 (> 60)
[2021-06-22] MEDS: *HR* Enoxaparin 30 MG/0.3 ML SYRINGE SQ SCH (05:51)
[2021-06-22] MEDS: Insulin LISPRO 300 UNITS/3 ML VIAL SUBQ SCH ×3 (08:53→18:01)
[2021-06-22] MEDS: cefTRIAXone 1,000 MG in 0.9 % Sodium Chloride Mini Bag 100 ML IVP SCH (09:15)
[2021-06-22] MEDS: Aspirin Enteric Coated 81 MG Tablet PO SCH (09:15)
[2021-06-22] MEDS: levETIRAcetam 250 MG TABLET PO SCH (09:15)
[2021-06-22 16:10] VITALS: RESP 16; O2SAT 100
[2021-06-22 19:46] VITALS: BP 137/79; PULSE 72; TEMP 97.9
[2021-06-23] MEDS ORDERED: *HR* Enoxaparin 40 MG/0.4 ML SYRINGE SQ SCH (06:00)
== END 2021-06-22 20:54 | DRG 110 ==
LOC: INPGRE 13:02 → EMEROOGRE 13:02 → OBSVTOIN 23:09 → INPGRE 23:26
PROVIDERS: ADMIT Family Medicine; ATTEND Family Medicine